=== PATIENT | male | born 2000 | race Caucasian/White ===

== ENCOUNTER 2024-03-04 14:39 | Day surgery (SDC) | payer OTHER, SELFPAY ==
[2024-03-04 14:55] VITALS: BP 128/87; PULSE 55; RESP 16; TEMP 36.5; O2SAT 100
--- NOTE | 2024-03-04 15:01 | PM.HP.1 ---
History of Present Illness History of Present Illness Chief complaint: Colonoscopy Narrative: Rectal bleeding presumably from hemorrhoids which are known from the past. In addition a family history of colon cancer though details are unknown. Meds Home Medications and Allergies Home Medications Medication Instructions Recorded Confirmed Type No Known Home Medications 03/04/24 03/04/24 History Allergies Allergy/AdvReac Type Severity Reaction Status Date / Time No Known Drug Allergies Allergy Verified 03/04/24 14:50 Exam Narrative Exam Narrative: Oropharynx free of lesions Chest clear to auscultation percussion Cardiac exam reveals no S3 or murmur Assessment & Plan Assessment & Plan narrative: Rectal bleeding and family history of cancer. Need for colonoscopy. Risks, benefits, alternatives have been explained. Time-Based Coding :: [TOTAL MINUTES] spent with patient and on the chart (including review of chart, obtaining history, exam, reviewing outside data, placing orders, documenting exam and treatment plan, and counseling patient) on [DATE].
--- NOTE | 2024-03-04 15:03 | PM.OP.COLON ---
Operative Date/Time/Diagnoses Date of procedure: 03/04/24 Pre-op diagnosis: See indication and findings Procedure & Clinicians Study performed: Colonoscopy Indications: Rectal bleeding and family history Surgeon: Jose Sun Procedure Notes Procedure in detail: After informed consent was obtained the patient was placed in the left lateral decubitus position. Video colonoscope was placed in the rectum slowly advanced cecum. Preparation was good. On slow withdrawal mucosa was carefully examined. The scope was removed. The patient tolerated procedure well. Blood loss none Complications none Sedation mac Findings 1. Moderate internal hemorrhoids 2. Otherwise negative colonoscopy to be cecum Patient should consider having his internal hemorrhoids banded by someone in our group. I will leave timing up to him however. He should have colonoscopy in 10 years or possibly loss if he can come up with the relationships of people in the family that have had colon cancer
[2024-03-04 15:32] VITALS: BP 128/88; PULSE 78; RESP 18; TEMP 36.8; O2SAT 100
[2024-03-04 15:37] VITALS: BP 115/82; PULSE 60; RESP 12; O2SAT 99
[2024-03-04 15:42] VITALS: BP 118/90; PULSE 65; RESP 14; O2SAT 98
[2024-03-04 15:49] VITALS: BP 113/81; PULSE 54; RESP 18; TEMP 36.5; O2SAT 99
== END 2024-03-04 16:15 | disposition home or self-care (01) ==
PROVIDERS: Referring Provider Internal Medicine Gastroenterology; Visit Provider Internal Medicine Gastroenterology
PROC: 0DJD8ZZ Inspection of Lower Intestinal Tract, Via Natural or Artificial Opening Endoscopic (ICD-10-PCS; CPT 45378; principal; 2024-03-04 15:30)
DX: K62.5 Hemorrhage of anus and rectum (principal); Z80.0 Family history of malignant neoplasm of digestive organs; K64.8 Other hemorrhoids
CPT/HCPCS: 45378; J2704; J3010